=== PATIENT | female | born 1970 | race Caucasian/White ===

== ENCOUNTER 2024-05-15 11:24 | Emergency (ER) | payer OTHER, SELFPAY ==
--- NOTE | ~2024-05-15 | XR_ITS ---
EXAMINATION: XR KNEE, LEFT CLINICAL INFORMATION: pain COMPARISON: None available. TECHNIQUE: Four views of the left knee. FINDINGS: No acute cortical disruption. No gross malalignment. Asymmetric joint space narrowing involving the lateral compartment. No suprapatellar bursa joint effusion. No metallic or radiopaque foreign body. No subcutaneous emphysema. No lytic or blastic lesions. XR/XR knee LT 4V IMPRESSION: Lateral compartment osteoarthrosis without acute fracture or dislocation. Electronically signed by: Joe Wyatt MD 05/15/2024 01:28 PM [facility]
--- NOTE | ~2024-05-15 | XR_ITS ---
EXAMINATION: XR KNEE, RIGHT CLINICAL INFORMATION: pain COMPARISON: None available. TECHNIQUE: Four views of the right knee. FINDINGS: No acute cortical disruption or malalignment. No lytic or blastic lesions. Joint space narrowing involving the lateral compartment. No suprapatellar bursa joint effusion. No metallic or radiopaque foreign body. XR/XR knee RT 4V IMPRESSION: Lateral compartment osteoarthrosis without acute fracture or dislocation. Electronically signed by: Joe Wyatt MD 05/15/2024 01:29 PM [facility]
[2024-05-15 11:38] VITALS: BP 129/79; BP 130/84; PULSE 109; PULSE 83; RESP 18; TEMP 36.7; O2SAT 100; O2SAT 96
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
[2024-05-15] MEDS: Lidocaine 4 % Patch ADH..PATCH 1 PATCH TRANSDERMA (16:38)
[2024-05-15] MEDS: Cyclobenzaprine HCl 10 MG TABLET PO (16:39)
[2024-05-15] MEDS: Ketorolac Tromethamine 30 MG/ML VIAL IM (16:41)
[2024-05-15 17:45] VITALS: BP 129/79; PULSE 83; RESP 18; TEMP 36.7; O2SAT 100
== END 2024-05-15 17:46 | disposition home or self-care (01) ==
PROVIDERS: Emergency Provider Emergency Medicine
DX: Z04.1 Encounter for examination and observation following transport accident (principal); M25.562 Pain in left knee; M25.561 Pain in right knee
CPT/HCPCS: 73564; 96372; 99283; 99284; J1885

== ENCOUNTER → 2024-05-15 11:43 | Outpatient (BNV) | payer OTHER, SELFPAY | PROVIDERS: Visit Provider Radiology Diagnostic Radiology | DX: M17.0 Bilateral primary osteoarthritis of knee (principal) | CPT/HCPCS: 73564 ==